=== PATIENT | male | born 1990 | race Caucasian/White ===

== ENCOUNTER 2019-03-20 10:25 | Emergency (ER) | payer OTHER ==
--- NOTE | 2019-03-20 12:55 | ED Physician Documentation ---
History of Present Illness - Stated complaint Stated Complaint: UPPER LT ABD PX - Chief complaint Chief Complaint: Abd Pain - Additonal information Additional information: This is a 28-year-old male who presents with some left upper quadrant abdominal discomfort. Patient had a photo shoot for an engagement in the last week and at one point his fiance jumped into his arms, he did not have immediate pain but notes that he did have some discomfort in the left upper quadrant after this. He has not had any nausea or vomiting, his breathing feels normal to him he denies any chest pain or hemoptysis, no leg swelling. He slept fine throughout the night but he has had gets intermittent twang's of pain in his left upper quadrant so he wanted to come get checked out. He has had a cholecystectomy in the past no other abdominal surgeries. Review of Systems Constitutional: denies: Fever Throat: denies: Oral lesions / sores Cardiac: denies: Chest pain / pressure GI: reports: Abdominal Pain : denies: Dysuria Skin: denies: Rash Immunocompromised: denies: Immunocompromised PD PAST MEDICAL HISTORY - Allergies Allergies/Adverse Reactions: Allergies Allergy/AdvReac Type Severity Reaction Status Date / Time No Known Drug Allergies Allergy Verified 03/20/19 10:30 PD ED PE NORMAL - Vitals Vital signs reviewed: Yes - General General: Alert and oriented X 3, No acute distress - HEENT HEENT: PERRL - Neck Neck: Supple, no meningeal sign - Cardiac Cardiac: RRR, No murmur - Respiratory Respiratory: Clear bilaterally - Abdomen Abdomen: Normal bowel sounds, Soft, Non distended, Other (Very mild tenderness with deep palpation in the left upper quadrant, abdomen is otherwise nontender. Chest wall is nontender. No guarding.) - Derm Derm: Warm and dry - Extremities Extremities: No deformity - Neuro Neuro: Alert and oriented X 3 - Psych Psych: Normal mood, Normal affect Results - Vitals Vitals: Vital Signs - 24 hr 03/20/19 03/20/19 10:30 13:00 Temperature 36.9 C 36.9 C Heart Rate 78 60 Respiratory 17 14 Rate Blood Pressure 157/80 H 127/84 H O2 Saturation 99 100 Oxygen O2 Source Room air - EKG (time done) 13:12 Other comments: Other comments (Rate 69, rhythm sinus, there is no ST segment elevation or no abnormal T wave inversions. There is a borderline IVCD, o therwise intervals are within normal limits.) - Labs Labs: Laboratory Tests 03/20/19 03/20/19 13:47 13:47 WBC 7.0 RBC 5.29 Hgb 16.8 Hct 47.1 MCV 89.0 MCH 31.8 H MCHC 35.7 RDW 12.2 Plt Count 177 MPV 10.0 Neut # (Auto) 5.3 Lymph # (Auto) 0.9 L [place] # (Auto) 0.7 Eos # (Auto) 0.0 Baso # (Auto) 0.0 Absolute Nucleated RBC 0.00 Nucleated RBC % 0.0 Sodium 138 Potassium 3.7 Chloride 101 Carbon Dioxide 26 Anion Gap 11.0 BUN 12 Creatinine 1.0 Estimated GFR (MDRD) 89 Glucose 89 Calcium 9.2 Total Bilirubin 2.2 H AST 18 ALT 17 Alkaline Phosphatase 61 Total Protein 7.8 Albumin 5.0 Globulin 2.8 Albumin/Globulin Ratio 1.8 Lipase 35 - Rads (name of study) CXR Radiology: Other (No acute cardiopulmonary abnormality) PD MEDICAL DECISION MAKING - ED course Complexity details: considered differential (Pancreatitis, muscle strain, pneumonia, ACS, enteritis, Pneumothorax) ED course: Patient is well-appearing on exam, he does have some mild left upper quadrant tenderness with very deep palpation, but his abdomen is benign and otherwise nontender. Labs show unremarkable blood counts and negative lipase, chest x-ray shows no acute abnormality, EKG shows no convincing signs of ischemia or dysrhythmia. On reevaluation patient continues to be very well-appearing. I discussed with him that I do not see an obvious cause of his abdominal discomfort, muscle strain is a possibility, but given the mildness of his symptoms I think he is appropriate for close outpatient follow-up. The nature of his pain is location make PE highly unlikely and additionally patient is PERC negative. I discussed return precautions, and PCP follow-up and patient was discharged home Departure - Departure Disposition: 01 Home, Self Care Clinical Impression: Left upper quadrant abdominal pain of unknown etiology Condition: Good Instructions: ED Abdominal Pain Unkn Cause Follow-Up: Your,PCP [Other] - Within 1 week Comments: Your labs and chest x-ray were reassuring today, I do not see an obvious cause of your pain, it is possible that you have a strain of the muscles of your upper abdomen. Please avoid straining or heavy lifting, you may take Tylenol and ibuprofen for discomfort, and follow-up with your primary care provider. If you are having worsening symptoms such as severe abdominal pain, persistent vomiting, difficulty breathing, or any other concerning symptoms return to the emergency department
[2019-03-20] MEDS ORDERED: ACETAMINOPHEN 325 MG TABLET PO STA (13:10)
[2019-03-20] MEDS ORDERED: IBUPROFEN 600 MG TABLET PO STA (13:10)
--- NOTE | 2019-03-20 13:46 | XRAY Report ---
Reason: LUQ abd/ left lower chest pain Procedure Date: 03/20/2019 Accession Number: [id number] / [id number] Procedure: XR - Chest 2 View X-Ray CPT Code: 99339 Final Report FULL RESULT: EXAM: CHEST RADIOGRAPHY EXAM DATE: 03/20/2019 01:22 PM. CLINICAL HISTORY: LUQ abd/ left lower chest pain. COMPARISON: None. TECHNIQUE: 2 views. FINDINGS: Lungs/Pleura: No focal opacities evident. No pleural effusion. No pneumothorax. Normal volumes. Mediastinum: Heart and mediastinal contours are unremarkable. Other: None. IMPRESSION: Negative chest RADIA
[2019-03-20 13:58] LABS: BASOPHILS % (AUTO) 0.4 %; EOSINOPHILS % (AUTO) 0.6 %; HGB - HEMOGLOBIN 16.8 g/dL (14.0-18.0); LYMPHOCYTES # (AUTO) 0.9 10^3/uL (1.5-3.5); LYMPHOCYTES % (AUTO) 12.6 %; MEAN CORPUSCULAR HEMOGLOBIN 31.8 pg (27.0-31.0); MEAN CORPUSCULAR HGB CONC 35.7 g/dL (32.0-36.0); MONOCYTES # (AUTO) 0.7 10^3/uL (0.0-1.0); NEUTROPHILS # (AUTO) 5.3 10^3/uL (1.5-6.6); PLT - PLATELET COUNT 177 10^3/uL (130-450); RED BLOOD COUNT 5.29 10^6/uL (4.70-6.10); RED CELL DISTRIBUTION WIDTH 12.2 % (12.0-15.0)
[2019-03-20 14:12] LABS: ALBUMIN/GLOBULIN RATIO 1.8 (1.0-2.2); BILIRUBIN,TOTAL 2.2 mg/dL (0.2-1.0); CALCIUM 9.2 mg/dL (8.5-10.3); TOTAL PROTEIN 7.8 g/dL (6.7-8.2)
[2019-03-20 14:42] VITALS: BP 134/82
== END 2019-03-20 14:43 | disposition home or self-care (01) ==
LOC: ED 10:25
DX: R10.12 Left upper quadrant pain (principal); Z90.49 Acquired absence of other specified parts of digestive tract; I45.9 Conduction disorder, unspecified
CPT/HCPCS: 36415; 71046; 80053; 83690; 85025; 93005; 99283; 99284; A9270